=== PATIENT | female | born 1935 | race African-American/Black ===

== ENCOUNTER 2016-11-15 01:52 | Emergency (ER) | payer MEDICARE, BC | END 2016-11-15 03:49 | disposition home or self-care (01) | LOC: BURERS 01:52 | DX: R51 Headache (principal); T39.315A Adverse effect of propionic acid derivatives, initial encounter; E78.5 Hyperlipidemia, unspecified; Z79.899 Other long term (current) drug therapy | CPT/HCPCS: 99283 ==

== ENCOUNTER 2016-11-26 07:00 | Emergency (ER) | payer MEDICARE, BC ==
[2016-11-26 07:47] LABS: Bacteria/HPF Rare-Few HPF (None Seen); Bilirubin Negative (Negative); Blood, Urine Trace (Negative); Clarity Clear (Clear); Glucose, Urine (Dipstick) Negative (Negative); Leukocyte Small (Negative); Nitrite Negative (Negative); Other Microscopic Description C&S SET UP; Protein, Urine (Dipstick) 30 mg/dL (Neg-Trace); RBC/HPF 0-3 HPF (0-3); Specific Gravity, Urine 1.015 (1.005-1.030); Squamous Epithelial 0-3 HPF (0-3); Urobilinogen 0.2 mg/dL (0.2-1.0)
[2016-11-26] MEDS ORDERED: Ondansetron ODT 4 MG TAB ONE (08:08)
[2016-11-26] MEDS ORDERED: Nitrofurantoin Monohyd/M-Cryst 100 MG CAP ONE (08:09)
== END 2016-11-26 08:26 | disposition home or self-care (01) ==
LOC: BURERS 07:00
DX: N30.00 Acute cystitis without hematuria (principal); I10 Essential (primary) hypertension; E78.5 Hyperlipidemia, unspecified; Z79.82 Long term (current) use of aspirin; Z79.891 Long term (current) use of opiate analgesic; Z79.899 Other long term (current) drug therapy
CPT/HCPCS: 81001; 87086; 99284; Q0162

== ENCOUNTER 2016-12-06 13:10 | Emergency (ER) | payer MEDICARE, BC ==
[2016-12-06 14:10] LABS: Anion Gap 15 mmol/L (10-20); BUN (Urea Nitrogen) 17 mg/dL (9.8-20.1); Calc. Creatinine Clearance 0 mL/min (70-130); Carbon Dioxide 22 mmol/L (23-31); Chloride 108 mmol/L (98-107); Estimated GFR-MDRD 60; Glucose 89 mg/dL (83-110); Potassium 4.6 mmol/L (3.5-5.1); Sodium 140 mmol/L (136-145)
[2016-12-06] MEDS ORDERED: Furosemide 40 MG TAB ONE (14:35)
== END 2016-12-06 14:40 | disposition home or self-care (01) ==
LOC: BURERS 13:10
DX: R60.0 Localized edema (principal); G43.909 Migraine, unspecified, not intractable, without status migrainosus; E78.5 Hyperlipidemia, unspecified
CPT/HCPCS: 36415; 80048; 83880; 99284

== ENCOUNTER 2016-12-12 21:27 | Emergency (ER) | payer MEDICARE, BC ==
[2016-12-12 22:11] LABS: #Basophils 0.1 thou/uL (0.0-0.2); #Eosinphils 0.2 thou/uL (0.0-0.7); #Monocytes 0.5 thou/uL (0.11-0.59); %Basophils 1.7 % (0.0-1.0); %Eosinophils 3.2 % (0.0-10.0); %Lymphocytes 43.7 % (21.0-51.0); %Monocytes 7.9 % (0.0-10.0); %Neutrophils 43.5 % (42.0-75.0); Hemoglobin 11.7 g/dL (12.0-16.0); Mean Corpuscular HGB CONC 33.1 g/dL (32.0-36.0); Mean Corpuscular Hemoglobin 28.8 pg (27.0-31.0); Mean Corpuscular Volume 87.1 fl (81.0-99.0); Mean Platelet Volume 8.7 fL (7.4-10.4); Platelet Count 192 thou/uL (130-400); RBC Distribution Width 14.2 % (11.5-14.5); Red Blood Cell (RBC) Count 4.04 mill/uL (4.20-5.40); White Blood Cell (WBC) Count 6.8 thou/uL (4.8-10.8)
[2016-12-12 22:20] LABS: ALT (SGPT) 16 U/L (0-55); AST (SGOT) 19 U/L (5-34); Alkaline Phosphatase 66 U/L (40-150); Anion Gap 18 mmol/L (10-20); BUN (Urea Nitrogen) 31 mg/dL (9.8-20.1); Bilirubin, Total 0.4 mg/dL (0.2-1.2); Calc. Creatinine Clearance 0 mL/min (70-130); Calcium 9.1 mg/dL (7.8-10.44); Carbon Dioxide 22 mmol/L (23-31); Chloride 104 mmol/L (98-107); Estimated GFR-MDRD 45; Globulin 3.4 g/dL (2.4-3.5); Glucose 88 mg/dL (83-110); Potassium 4.1 mmol/L (3.5-5.1); Protein, Total 7.4 g/dL (5.8-8.1); Sodium 140 mmol/L (136-145)
[2016-12-12 22:21] LABS: CKMB 3.4 ng/mL (0-6.6); Troponin I Less than 0.010 ng/mL (< 0.028)
--- NOTE | 2016-12-12 22:24 | RAD ---
PORTABLE CHEST 12/12/16 An AP portable film at 2137 is compared with a 11/22/16 study done at [facility]. Mild cardiomegaly is about the same as before. The lung markings seem slightly more prominent than b efore, though the upper lobe vessels are not terribly distended. It is haziest is the right base. Th is may be in part due to the patient being turned slightly. Overall, I cannot confidently diagnose v ascular congestion at the moment, but I am not prepared to exclude early congestion. Serial followup films will be helpful. IMPRESSION: Slight increase in haziness in the lungs since the prior film. POS: HOME
[2016-12-12] MEDS ORDERED: Furosemide 40 MG TAB ONE (23:48)
== END 2016-12-13 00:27 | disposition home or self-care (01) ==
LOC: BURERS 21:27
DX: I11.0 Hypertensive heart disease with heart failure (principal); I50.9 Heart failure, unspecified; E78.5 Hyperlipidemia, unspecified; Z79.82 Long term (current) use of aspirin; Z79.891 Long term (current) use of opiate analgesic; Z79.899 Other long term (current) drug therapy
CPT/HCPCS: 71010; 80053; 82553; 83880; 84484; 85025; 93005

== ENCOUNTER 2016-12-25 03:57 | Emergency (ER) | payer MEDICARE, BC ==
[2016-12-25 04:24] LABS: Bilirubin Negative (Negative); Blood, Urine Negative (Negative); Clarity Slightly Cloudy (Clear); Glucose, Urine (Dipstick) Negative (Negative); Leukocyte Small (Negative); Nitrite Negative (Negative); Protein, Urine (Dipstick) Negative (Neg-Trace); Specific Gravity, Urine 1.015 (1.005-1.030); Urobilinogen 0.2 mg/dL (0.2-1.0); pH, Urine 5.5 (5.0-9.0)
[2016-12-25 04:29] LABS: RBC/HPF 0-3 HPF (0-3); Squamous Epithelial 0-3 HPF (0-3)
[2016-12-25 04:30] LABS: Bacteria/HPF 1+ HPF (None Seen)
[2016-12-25] MEDS ORDERED: Bisacodyl 10 MG SUPP ONE (04:58)
--- NOTE | 2016-12-25 07:17 | RAD ---
ABDOMEN 2 VIEWS: Date: 12/25/16 Supine and erect views show no free air beneath the diaphragm. The gas pattern is nonspecific with g as in nondistended small and large bowel. A moderate amount of fecal material is seen in the colon. Pelvic calcifications are present bilaterally that are most likely phleboliths, but if there any hem aturia, any one of these could potentially be ureteral in nature. Mild scoliosis convex right is pre sent. Exam was otherwise unremarkable. IMPRESSION: Mild constipation. Otherwise, no acute findings. POS: HOME
== END 2016-12-25 05:12 | disposition home or self-care (01) ==
LOC: BURERS 03:57
DX: N39.0 Urinary tract infection, site not specified (principal); K59.00 Constipation, unspecified; I10 Essential (primary) hypertension; E78.5 Hyperlipidemia, unspecified; G43.909 Migraine, unspecified, not intractable, without status migrainosus; M54.2 Cervicalgia; Z79.82 Long term (current) use of aspirin; Z79.899 Other long term (current) drug therapy
CPT/HCPCS: 74020; 81003; 81015; 87077; 87086; 87186

== ENCOUNTER 2017-01-30 05:52 | Emergency (ER) | payer MEDICARE, BC ==
[2017-01-30 06:34] LABS: #Basophils 0.1 thou/uL (0.0-0.2); #Eosinphils 0.2 thou/uL (0.0-0.7); #Lymphocytes 2.6 thou/uL (1.20-3.40); #Monocytes 0.6 thou/uL (0.11-0.59); #Neutrophils 2.3 thou/uL (1.40-6.50); %Basophils 1.5 % (0.0-1.0); %Lymphocytes 45.9 % (21.0-51.0); %Monocytes 9.9 % (0.0-10.0); %Neutrophils 39.8 % (42.0-75.0); Hemoglobin 11.9 g/dL (12.0-16.0); Mean Corpuscular HGB CONC 32.4 g/dL (32.0-36.0); Mean Corpuscular Hemoglobin 27.4 pg (27.0-31.0); Mean Corpuscular Volume 84.6 fl (81.0-99.0); Mean Platelet Volume 7.5 fL (7.4-10.4); Platelet Count 191 thou/uL (130-400); RBC Distribution Width 14.6 % (11.5-14.5); Red Blood Cell (RBC) Count 4.35 mill/uL (4.20-5.40); White Blood Cell (WBC) Count 5.7 thou/uL (4.8-10.8)
[2017-01-30 06:44] LABS: Bilirubin Negative (Negative); Blood, Urine Negative (Negative); Clarity Clear (Clear); Glucose, Urine (Dipstick) Negative (Negative); Leukocyte Trace (Negative); Nitrite Negative (Negative); Protein, Urine (Dipstick) Trace mg/dL (Neg-Trace); Urobilinogen 0.2 mg/dL (0.2-1.0)
[2017-01-30 06:46] LABS: Bacteria/HPF None Seen HPF (None Seen); RBC/HPF 0-3 HPF (0-3); Squamous Epithelial 0-3 HPF (0-3); WBC/HPF 0-3 HPF (0-3)
[2017-01-30 06:47] LABS: Other Microscopic Description C&S SET UP
[2017-01-30 06:49] LABS: ALT (SGPT) 10 U/L (8-55); AST (SGOT) 15 U/L (5-34); Albumin 3.7 g/dL (3.4-4.8); Alkaline Phosphatase 71 U/L (40-150); Anion Gap 11 mmol/L (10-20); BUN (Urea Nitrogen) 24 mg/dL (9.8-20.1); Bilirubin, Total 0.3 mg/dL (0.2-1.2); CK (CPK) 89 U/L (29-168); Calc. Creatinine Clearance 0 mL/min (70-130); Carbon Dioxide 27 mmol/L (23-31); Chloride 105 mmol/L (98-107); Estimated GFR-MDRD 63; Glucose 97 mg/dL (83-110); Lipase 48 U/L (8-78); Protein, Total 6.7 g/dL (6.0-8.3); Sodium 139 mmol/L (136-145)
[2017-01-30 06:50] LABS: CKMB 1.8 ng/mL (0-6.6); Troponin I Less than 0.010 ng/mL (< 0.028)
== END 2017-01-30 07:19 | disposition home or self-care (01) ==
LOC: BURERS 05:52
DX: I10 Essential (primary) hypertension (principal); G43.909 Migraine, unspecified, not intractable, without status migrainosus; E78.5 Hyperlipidemia, unspecified; Z79.82 Long term (current) use of aspirin; Z79.899 Other long term (current) drug therapy
CPT/HCPCS: 36415; 80053; 81003; 81015; 82553; 83690; 84484; 85025; 87086; 93005; 96374; J2270

== ENCOUNTER 2017-02-12 05:15 | Emergency (ER) | payer MEDICARE, BC | END 2017-02-12 05:52 | disposition home or self-care (01) | LOC: BURERS 05:15 | DX: I10 Essential (primary) hypertension (principal); G43.909 Migraine, unspecified, not intractable, without status migrainosus; E78.5 Hyperlipidemia, unspecified | CPT/HCPCS: 99283 ==

== ENCOUNTER 2017-07-21 08:34 | Emergency (ER) | payer MEDICARE, BC | END 2017-07-21 09:18 | disposition home or self-care (01) | LOC: BURERS 08:34 | DX: I10 Essential (primary) hypertension (principal); G43.909 Migraine, unspecified, not intractable, without status migrainosus; E78.5 Hyperlipidemia, unspecified | CPT/HCPCS: 99283 ==

== ENCOUNTER 2017-08-24 21:13 | Emergency (ER) | payer MEDICARE, BC ==
[2017-08-24 22:13] LABS: PTT 25.1 SEC (22.9-36.1); Prothrombin Time 13.4 SEC (12.0-14.7)
[2017-08-24 22:14] LABS: D-Dimer Test 1.12 *mcg/mL (0.27-0.43)
[2017-08-24 22:22] LABS: ALT (SGPT) 13 U/L (8-55); AST (SGOT) 16 U/L (5-34); Alkaline Phosphatase 85 U/L (40-150); Anion Gap 14 mmol/L (10-20); BUN (Urea Nitrogen) 24 mg/dL (9.8-20.1); Bilirubin, Total 0.2 mg/dL (0.2-1.2); Calc. Creatinine Clearance 0 mL/min (70-130); Calcium 9.2 mg/dL (7.8-10.44); Carbon Dioxide 26 mmol/L (23-31); Chloride 105 mmol/L (98-107); Estimated GFR-MDRD 56; Globulin 3.4 g/dL (2.4-3.5); Glucose 235 mg/dL (83-110); Potassium 3.6 mmol/L (3.5-5.1); Protein, Total 7.4 g/dL (6.0-8.3); Sodium 141 mmol/L (136-145)
[2017-08-24 22:23] LABS: CKMB 3.1 ng/mL (0-6.6); Troponin I 0.011 ng/mL (< 0.028)
[2017-08-24 22:27] LABS: Band 1 % (5-11); Hemoglobin 12.4 g/dL (12.0-16.0); Lymphocytes 20 % (21-51); MDiff Complete? YES; Mean Corpuscular HGB CONC 33.4 g/dL (32.0-36.0); Mean Corpuscular Hemoglobin 28.3 pg (27.0-31.0); Mean Corpuscular Volume 84.9 fl (81.0-99.0); Mean Platelet Volume 7.8 fL (7.4-10.4); Monocytes 1 % (0-10); Neutrophil 78 % (42-75); PLT Morphology Comment Appears Adequate; Platelet Count 217 thou/uL (130-400); RBC Distribution Width 12.9 % (11.5-14.5); RBC Morphology Normal; Red Blood Cell (RBC) Count 4.39 mill/uL (4.20-5.40); White Blood Cell (WBC) Count 6.2 thou/uL (4.8-10.8)
--- NOTE | 2017-08-24 23:28 | RAD ---
PORTABLE CHEST 08/24/17 An AP portable film at 2114 is compared with an 07/08/17 study. The heart is upper limits of normal in size but no different than before. There is no congestion of v essels, pleural effusions, or focal pulmonary infiltrates. The trachea is midline. IMPRESSION: No acute findings. POS: HOME
== END 2017-08-24 23:05 | disposition home or self-care (01) ==
LOC: BURERS 21:13
DX: R00.2 Palpitations (principal); E78.5 Hyperlipidemia, unspecified; G43.909 Migraine, unspecified, not intractable, without status migrainosus; I10 Essential (primary) hypertension; Z79.82 Long term (current) use of aspirin; Z79.899 Other long term (current) drug therapy
CPT/HCPCS: 71010; 80053; 82553; 84484; 85025; 85379; 85610; 85730; 93005; 94760

== ENCOUNTER 2017-09-30 20:25 | Emergency (ER) | payer MEDICARE, BC ==
[2017-09-30] MEDS ORDERED: Ibuprofen 800 MG TAB ONE (21:17)
[2017-09-30 21:24] LABS: #Basophils 0.1 thou/uL (0.0-0.2); #Eosinphils 0.1 thou/uL (0.0-0.7); #Lymphocytes 2.1 thou/uL (1.20-3.40); #Monocytes 0.7 thou/uL (0.11-0.59); %Basophils 0.9 % (0.0-1.0); %Eosinophils 0.7 % (0.0-10.0); %Lymphocytes 21.1 % (21.0-51.0); %Monocytes 7.2 % (0.0-10.0); %Neutrophils 70.1 % (42.0-75.0); Hemoglobin 12.5 g/dL (12.0-16.0); Mean Corpuscular Hemoglobin 28.3 pg (27.0-31.0); Mean Corpuscular Volume 85.7 fl (81.0-99.0); Mean Platelet Volume 7.5 fL (7.4-10.4); PLT Morphology Comment Appears Decreased; Platelet Count 116 thou/uL (130-400); RBC Distribution Width 12.3 % (11.5-14.5); RBC Morphology Normal; Red Blood Cell (RBC) Count 4.42 mill/uL (4.20-5.40)
[2017-09-30 21:28] LABS: Anion Gap 19 mmol/L (10-20); BUN (Urea Nitrogen) 19 mg/dL (9.8-20.1); Calc. Creatinine Clearance 0 mL/min (70-130); Calcium 9.6 mg/dL (7.8-10.44); Carbon Dioxide 19 mmol/L (23-31); Chloride 103 mmol/L (98-107); Estimated GFR-MDRD 76; Glucose 125 mg/dL (83-110); Potassium 4.2 mmol/L (3.5-5.1); Sodium 137 mmol/L (136-145); Uric Acid 3.9 mg/dL (2.6-6.0)
--- NOTE | 2017-09-30 23:07 | RAD ---
LEFT FOOT 09/30/17 No acute fracture was seen. There are erosive changes in the nonarticular part of the first metatarsa l head laterally. Sometimes this can be caused by gout and other times it is just due to cystic plascencia es in the bone. Hallux valgus is present and there is soft tissue swelling medial to the first MTP ana int. The other bones all appeared intact. Some swelling is seen on the dorsum of the foot. A calcanea l spur is present. A few flecks of bone are seen along the anterior part of the dorsal talus that may be avulsions from a prior injury. IMPRESSION: Bony and soft tissue changes as listed above. POS: HOME
== END 2017-09-30 21:57 | disposition home or self-care (01) ==
LOC: BURERS 20:25
DX: M79.672 Pain in left foot (principal); R60.0 Localized edema; Z91.14 Patient's other noncompliance with medication regimen; I10 Essential (primary) hypertension; G43.909 Migraine, unspecified, not intractable, without status migrainosus; E78.5 Hyperlipidemia, unspecified; Z79.82 Long term (current) use of aspirin; Z79.899 Other long term (current) drug therapy
CPT/HCPCS: 80048; 84550; 85025

== ENCOUNTER 2017-10-31 12:18 | Emergency (ER) | payer MEDICARE, BC ==
[2017-10-31] MEDS ORDERED: Acetaminophen 500 MG TAB ONE (13:26)
== END 2017-10-31 13:33 | disposition home or self-care (01) ==
LOC: BURERS 12:18
DX: R51 Headache (principal); F03.90 Unspecified dementia, unspecified severity, without behavioral disturbance, psychotic disturbance, mood disturbance, and anxiety; I10 Essential (primary) hypertension; E78.5 Hyperlipidemia, unspecified; Z79.82 Long term (current) use of aspirin; Z79.899 Other long term (current) drug therapy
CPT/HCPCS: 99283

== ENCOUNTER 2018-01-11 20:49 | Emergency (ER) | payer MEDICARE, BC ==
[2018-01-11] MEDS ORDERED: Ondansetron ODT 4 MG TAB ONE (21:04)
[2018-01-11 21:27] LABS: #Basophils 0.1 thou/uL (0.0-0.2); #Eosinphils 0.2 thou/uL (0.0-0.7); #Monocytes 0.7 thou/uL (0.11-0.59); #Neutrophils 3.4 thou/uL (1.40-6.50); %Basophils 1.2 % (0.0-1.0); %Monocytes 9.8 % (0.0-10.0); %Neutrophils 45.9 % (42.0-75.0); Hemoglobin 12.2 g/dL (12.0-16.0); Mean Corpuscular HGB CONC 33.6 g/dL (32.0-36.0); Mean Corpuscular Hemoglobin 26.7 pg (27.0-31.0); Mean Corpuscular Volume 79.4 fl (81.0-99.0); Mean Platelet Volume 8.1 fL (7.4-10.4); Platelet Count 212 thou/uL (130-400); RBC Distribution Width 14.6 % (11.5-14.5); Red Blood Cell (RBC) Count 4.56 mill/uL (4.20-5.40); White Blood Cell (WBC) Count 7.4 thou/uL (4.8-10.8)
[2018-01-11 21:44] LABS: ALT (SGPT) 13 U/L (8-55); AST (SGOT) 19 U/L (5-34); Albumin 3.9 g/dL (3.4-4.8); Alkaline Phosphatase 84 U/L (40-150); Anion Gap 16 mmol/L (10-20); BUN (Urea Nitrogen) 24 mg/dL (9.8-20.1); Bilirubin, Total 0.3 mg/dL (0.2-1.2); Calc. Creatinine Clearance 0 mL/min (70-130); Carbon Dioxide 24 mmol/L (23-31); Chloride 105 mmol/L (98-107); Estimated GFR-MDRD 58; Globulin 3.1 g/dL (2.4-3.5); Glucose 116 mg/dL (83-110); Potassium 4.5 mmol/L (3.5-5.1); Sodium 140 mmol/L (136-145)
[2018-01-11 21:46] LABS: Bilirubin Negative (Negative); Blood, Urine Negative (Negative); Clarity Slightly Cloudy (Clear); Glucose, Urine (Dipstick) Negative (Negative); Leukocyte Small (Negative); Nitrite Negative (Negative); Protein, Urine (Dipstick) Trace mg/dL (Neg-Trace); Urobilinogen 0.2 mg/dL (0.2-1.0)
[2018-01-11 21:54] LABS: Bacteria/HPF 1+ HPF (None Seen); RBC/HPF 0-3 HPF (0-3); Squamous Epithelial 0-3 HPF (0-3)
[2018-01-11 22:02] LABS: CKMB 2.6 ng/mL (0-6.6); Troponin I Less than 0.010 ng/mL (< 0.028)
[2018-01-11] MEDS ORDERED: AMOXicillin 250 MG CAP ONE (22:17)
== END 2018-01-11 22:35 | disposition home or self-care (01) ==
LOC: BURERS 20:49
DX: N39.0 Urinary tract infection, site not specified (principal); R42 Dizziness and giddiness; I10 Essential (primary) hypertension; G43.909 Migraine, unspecified, not intractable, without status migrainosus; E78.5 Hyperlipidemia, unspecified; Z79.82 Long term (current) use of aspirin; Z79.899 Other long term (current) drug therapy
CPT/HCPCS: 36415; 80053; 81003; 81015; 82553; 84484; 85025; 93005; Q0162

== ENCOUNTER 2018-01-20 21:28 | Emergency (ER) | payer MEDICARE, BC ==
[2018-01-20] MEDS ORDERED: Meclizine HCl 25 MG TAB ONE (21:55)
== END 2018-01-20 22:01 | disposition home or self-care (01) ==
LOC: BURERS 21:28
DX: H83.09 Labyrinthitis, unspecified ear (principal); I10 Essential (primary) hypertension; G43.909 Migraine, unspecified, not intractable, without status migrainosus; E78.5 Hyperlipidemia, unspecified; Z79.899 Other long term (current) drug therapy; Z79.82 Long term (current) use of aspirin
CPT/HCPCS: 99283

== ENCOUNTER 2018-08-18 19:18 | Emergency (ER) | payer MEDICARE, BC ==
[2018-08-18 19:52] LABS: #Basophils 0.1 thou/uL (0.0-0.2); #Eosinphils 0.1 thou/uL (0.0-0.7); #Lymphocytes 3.1 thou/uL (1.20-3.40); #Monocytes 0.6 thou/uL (0.11-0.59); #Neutrophils 2.8 thou/uL (1.40-6.50); %Basophils 1.1 % (0.0-1.0); %Eosinophils 1.6 % (0.0-10.0); %Lymphocytes 45.8 % (21.0-51.0); %Monocytes 9.5 % (0.0-10.0); Hemoglobin 11.9 g/dL (12.0-16.0); Mean Corpuscular HGB CONC 33.9 g/dL (32.0-36.0); Mean Corpuscular Hemoglobin 26.9 pg (27.0-31.0); Mean Corpuscular Volume 79.5 fL (78.0-98.0); Mean Platelet Volume 9.7 fL (7.4-10.4); Platelet Count 239 thou/uL (130-400); RBC Distribution Width 13.2 % (11.5-14.5); Red Blood Cell (RBC) Count 4.42 mill/uL (4.20-5.40); White Blood Cell (WBC) Count 6.7 thou/uL (4.8-10.8)
[2018-08-18 20:01] LABS: Anion Gap 14 mmol/L (10-20); BUN (Urea Nitrogen) 15 mg/dL (9.8-20.1); Calc. Creatinine Clearance 0 mL/min (70-130); Calcium 9.3 mg/dL (7.8-10.44); Carbon Dioxide 28 mmol/L (23-31); Chloride 101 mmol/L (98-107); Estimated GFR-MDRD 54; Glucose 135 mg/dL (83-110); Potassium 3.6 mmol/L (3.5-5.1); Sodium 139 mmol/L (136-145)
[2018-08-18] MEDS ORDERED: Acetaminophen 325 MG TAB ONE (20:07)
== END 2018-08-18 20:37 | disposition home or self-care (01) ==
LOC: BURERS 19:18
DX: R42 Dizziness and giddiness (principal); I10 Essential (primary) hypertension; G43.909 Migraine, unspecified, not intractable, without status migrainosus; E78.5 Hyperlipidemia, unspecified; Z79.899 Other long term (current) drug therapy; Z79.82 Long term (current) use of aspirin
CPT/HCPCS: 80048; 85025; 99284

== ENCOUNTER 2018-10-09 10:59 | Emergency (ER) | payer MEDICARE, BC ==
[2018-10-09] MEDS ORDERED: Dexamethasone 4 mg/ml Vial ONE (11:45)
[2018-10-09] MEDS ORDERED: AMOXicillin 250 MG CAP ONE (11:45)
== END 2018-10-09 11:55 | disposition home or self-care (01) ==
LOC: BURERS 10:59
DX: J06.9 Acute upper respiratory infection, unspecified (principal); I10 Essential (primary) hypertension; G43.909 Migraine, unspecified, not intractable, without status migrainosus; E78.5 Hyperlipidemia, unspecified; Z79.899 Other long term (current) drug therapy; Z79.82 Long term (current) use of aspirin
CPT/HCPCS: 99283; J1100

== ENCOUNTER 2018-10-17 07:14 | Emergency (ER) | payer MEDICARE, BC ==
[2018-10-17] MEDS ORDERED: Azithromycin 250 MG TAB ONE (08:02)
== END 2018-10-17 08:10 | disposition home or self-care (01) ==
LOC: BURERS 07:14
DX: J20.9 Acute bronchitis, unspecified (principal); I10 Essential (primary) hypertension; G43.909 Migraine, unspecified, not intractable, without status migrainosus; E78.5 Hyperlipidemia, unspecified; Z79.891 Long term (current) use of opiate analgesic; Z79.899 Other long term (current) drug therapy; Z79.01 Long term (current) use of anticoagulants
CPT/HCPCS: 99283

== ENCOUNTER 2020-09-30 15:21 | Emergency (ER) | payer MEDICARE, BC ==
[2020-09-30] MEDS ORDERED: Bacitracin 1 PK ONE (17:45)
[2020-09-30] MEDS ORDERED: cloNIDine 0.1 MG TAB ONE (18:27)
[2020-09-30 18:59] LABS: Mean Corpuscular HGB CONC 30.6 g/dL (32.0-36.0); Mean Corpuscular Hemoglobin 24.7 pg (27.0-31.0); Mean Corpuscular Volume 80.9 fL (78.0-98.0); Mean Platelet Volume 9.1 fL (7.4-10.4); Platelet Count 158 thou/uL (130-400); RBC Distribution Width 15.9 % (11.5-14.5); Red Blood Cell (RBC) Count 4.03 mill/uL (4.20-5.40); White Blood Cell (WBC) Count 7.4 thou/uL (4.8-10.8)
[2020-09-30 19:26] LABS: Band 2 % (5-11); Eosinophils 2 % (0-10); Hypochromia SLIGHT = 6-15 cells (100X) (0-5/hpf); Lymphocytes 27 % (21-51); MDiff Complete? YES; Metamyelocyte 1 % (0-0); Microcytosis MODERATE=15-30 cells (100X) (0-5/hpf); Monocytes 8 % (0-10); Neutrophil 60 % (42-75); Platelet Morphology Comment Appears Adequate; Poikilocytosis SLIGHT = 6-15 cells (100X) (0-5/hpf); Small Platelets SLIGHT
== END 2020-09-30 19:24 | disposition home or self-care (01) ==
LOC: BURERS 15:21
DX: L03.116 Cellulitis of left lower limb (principal); I10 Essential (primary) hypertension; Z79.899 Other long term (current) drug therapy; Z79.82 Long term (current) use of aspirin; E78.5 Hyperlipidemia, unspecified
CPT/HCPCS: 85025

== ENCOUNTER 2021-12-27 17:34 | Emergency (ER) | payer BC, MEDICARE ==
[2021-12-27] MEDS ORDERED: Labetalol HCl 100 MG/20 ML VIAL ONE (18:17)
[2021-12-27] MEDS ORDERED: Furosemide 40 MG/4 ML VIAL ONE (18:17)
[2021-12-27 19:18] LABS: #Basophils 0.1 thou/uL (0.0-0.2); #Eosinphils 0.2 thou/uL (0.0-0.7); #Lymphocytes 1.6 thou/uL (1.20-3.40); #Monocytes 0.6 thou/uL (0.11-0.59); #Neutrophils 5.6 thou/uL (1.40-6.50); %Basophils 1.4 % (0.0-1.0); %Eosinophils 2.2 % (0.0-10.0); %Lymphocytes 19.8 % (21.0-51.0); %Monocytes 7.7 % (0.0-10.0); Hemoglobin 11.3 g/dL (12.0-16.0); Mean Corpuscular HGB CONC 31.1 g/dL (32.0-36.0); Mean Corpuscular Hemoglobin 26.1 pg (27.0-31.0); Mean Corpuscular Volume 83.9 fL (78.0-98.0); Mean Platelet Volume 8.3 fL (7.4-10.4); Platelet Count 184 thou/uL (130-400); RBC Distribution Width 16.8 % (11.5-14.5); Red Blood Cell (RBC) Count 4.32 mill/uL (4.20-5.40); White Blood Cell (WBC) Count 8.1 thou/uL (4.8-10.8)
[2021-12-27 19:22] LABS: ALT (SGPT) 20 U/L (8-55); AST (SGOT) 21 U/L (5-34); Alkaline Phosphatase 74 U/L (40-110); Anion Gap 18 mmol/L (10-20); BUN (Urea Nitrogen) 24 mg/dL (9.8-20.1); Bilirubin, Total 0.8 mg/dL (0.2-1.2); Calc. Creatinine Clearance 0 mL/min (70-130); Calcium 9.2 mg/dL (7.8-10.44); Carbon Dioxide 24 mmol/L (23-31); Chloride 105 mmol/L (98-107); Globulin 3.7 g/dL (2.4-3.5); Glucose 132 mg/dL (83-110); Potassium 3.5 mmol/L (3.5-5.1); Protein, Total 7.7 g/dL (5.8-8.1); Sodium 143 mmol/L (136-145)
== END 2021-12-27 22:10 | disposition short-term general hospital (02) ==
LOC: BURERS 17:34
DX: I11.0 Hypertensive heart disease with heart failure (principal); I50.9 Heart failure, unspecified; I48.91 Unspecified atrial fibrillation; E78.5 Hyperlipidemia, unspecified; Z79.82 Long term (current) use of aspirin; Z79.899 Other long term (current) drug therapy
CPT/HCPCS: 36415; 71045; 80053; 83880; 84484; 85025; 93005; 96374; 96375; J1940

== ENCOUNTER 2023-11-01 12:15 | Emergency (ER) | payer MEDICARE, OTHER ==
[2023-11-01 12:53] LABS: #Eosinphils 0.1 thou/uL (0.0-0.7); #Lymphocytes 1.9 thou/uL (1.20-3.40); #Monocytes 0.6 thou/uL (0.11-0.59); #Neutrophils 4.3 thou/uL (1.40-6.50); %Basophils 0.7 % (0.0-1.0); %Eosinophils 1.4 % (0.0-10.0); %Lymphocytes 27.5 % (21.0-51.0); %Monocytes 9.1 % (0.0-10.0); %Neutrophils 61.4 % (42.0-75.0); Hematocrit 29.3 % (36.0-47.0); Mean Corpuscular HGB CONC 30.9 g/dL (32.0-36.0); Mean Corpuscular Hemoglobin 23.2 pg (27.0-31.0); Mean Corpuscular Volume 75.3 fl (78.0-98.0); Mean Platelet Volume 8.6 fL (7.4-10.4); Platelet Count 205 10x3/uL (130-400); Red Blood Cell (RBC) Count 3.89 mill/uL (4.20-5.40)
[2023-11-01 12:55] LABS: Critical Call w/ Read Back 321621
[2023-11-01 12:56] LABS: MDiff Complete? YES
[2023-11-01 13:10] LABS: ALT (SGPT) 9 U/L (8-55); AST (SGOT) 11 U/L (5-34); Albumin 3.4 g/dL (3.4-4.8); Alkaline Phosphatase 65 U/L (40-110); Anion Gap 15 mmol/L (10-20); BUN (Urea Nitrogen) 29 mg/dL (9.8-20.1); Bilirubin, Total 0.5 mg/dL (0.2-1.2); Calc. Creatinine Clearance 0 mL/min (70-130); Calcium 8.8 mg/dL (7.8-10.44); Carbon Dioxide 22 mmol/L (23-31); Chloride 109 mmol/L (98-107); Estimated GFR 42; Globulin 3.2 g/dL (2.4-3.5); Glucose 119 mg/dL (83-110); Potassium 3.7 mmol/L (3.5-5.1); Protein, Total 6.6 g/dL (5.8-8.1); Sodium 142 mmol/L (136-145)
[2023-11-01] MEDS ORDERED: Furosemide 40 MG (4 mL) VIAL ONE (13:53)
[2023-11-01 14:12] LABS: Bilirubin Negative (Negative); Blood, Urine Trace (Negative); Clarity Clear (Clear); Glucose, Urine (Dipstick) Negative (Negative); Ketone, Urine Negative (Negative); Leukocyte Trace (Negative); Nitrite Negative (Negative); Protein, Urine (Dipstick) Negative (Neg-Trace); Urobilinogen 0.2 mg/dL (Less than 2)
[2023-11-01 14:17] LABS: Bacteria/HPF Rare-Few HPF (None Seen); CAUTI Indications for Culture Alt mental st,lethar; RBC/HPF 0-3 HPF (0-3); Squamous Epithelial 0-3 HPF (0-3); WBC/HPF 0-3 HPF (0-3)
[2023-11-01 14:18] LABS: Urine Culture Reflex No No
== END 2023-11-01 15:20 | disposition home or self-care (01) ==
LOC: BURERS 12:15
DX: I11.0 Hypertensive heart disease with heart failure (principal); I50.9 Heart failure, unspecified; E78.5 Hyperlipidemia, unspecified; Z79.82 Long term (current) use of aspirin; Z79.899 Other long term (current) drug therapy
CPT/HCPCS: 36415; 71045; 80053; 81001; 83880; 84484; 85025; 93005; 96374; J1940

== ENCOUNTER 2024-05-08 09:47 | Emergency (ER) | payer OTHER ==
[2024-05-08] MEDS ORDERED: Acetaminophen 500 MG TAB ONE (10:32)
== END 2024-05-08 10:52 | disposition home or self-care (01) ==
LOC: BURERS 09:47
DX: M25.552 Pain in left hip (principal); F03.90 Unspecified dementia, unspecified severity, without behavioral disturbance, psychotic disturbance, mood disturbance, and anxiety; Z55.6 Problems related to health literacy
CPT/HCPCS: 72170

== ENCOUNTER 2025-03-20 18:55 | Inpatient (IN) | payer OTHER ==
[2025-03-20] MEDS ORDERED: Acetaminophen 325 MG TAB PO PRN (20:32)
[2025-03-20] MEDS: Gabapentin 300 MG CAP PO SCH (21:24)
[2025-03-20] MEDS: Rosuvastatin 10 MG TAB PO SCH (21:25)
[2025-03-20] MEDS: TRIMETHOPRIM EA EYE SCH (21:25)
[2025-03-20] MEDS: POLYMYXIN B SULF EA EYE SCH (21:25)
[2025-03-20] MEDS: Nystatin Powder 15 GM BOT TOP SCH (21:25)
[2025-03-21 05:25] LABS: #Basophils 0.1 thou/uL (0.0-0.2); #Eosinophils 0.2 thou/uL (0.0-0.7); #Lymphocytes 2.7 thou/uL (1.20-3.40); #Monocytes 0.7 thou/uL (0.11-0.59); #Neutrophils 6.8 thou/uL (1.40-6.50); %Basophils 0.6 % (0.0-1.0); %Eosinophils 2.3 % (0.0-10.0); %Lymphocytes 25.7 % (21.0-51.0); %Monocytes 6.7 % (0.0-10.0); %Neutrophils 64.7 % (42.0-75.0); Hematocrit 35.3 % (36.0-47.0); Hemoglobin 11.1 g/dL (12.0-16.0); MDiff Complete? YES; Mean Corpuscular Hemoglobin 24.4 pg (27.0-31.0); Mean Corpuscular Volume 77.5 fl (78.0-98.0); Microcytosis SLIGHT = 6-15 cells (100X) (0-5/hpf); Ovalocytes SLIGHT = 2-5 cells (100X) (0-1/hpf); Platelet Adequacy Comment Appears Adequate; Platelet Count 213 10x3/uL (130-400); Red Blood Cell (RBC) Count 4.55 mill/uL (4.20-5.40); Schistocytes SLIGHT = 2-5 cells (100X) (0-1/hpf); White Blood Cell (WBC) Count 10.5 10x3/uL (4.8-10.8)
[2025-03-21 05:35] LABS: ALT (SGPT) 10 U/L (Less than 34); AST (SGOT) 15 U/L (11-34); Albumin 2.6 g/dL (3.1-4.5); Alkaline Phosphatase 69 U/L (40-110); Anion Gap 17 mmol/L (10-20); BUN (Urea Nitrogen) 19 mg/dL (9.8-20.1); Bilirubin, Total 0.2 mg/dL (0.3-1.2); Calc. Creatinine Clearance 45 mL/min (70-130); Calcium 8.8 mg/dL (7.8-10.44); Carbon Dioxide 19 mmol/L (23-31); Chloride 113 mmol/L (98-107); Globulin 4.2 g/dL (2.4-3.5); Glucose 110 mg/dL (83-110); Potassium 4.7 mmol/L (3.5-5.1); Sodium 144 mmol/L (136-145)
[2025-03-21] MEDS: Isosorbide Mononitrate 30 MG ER.TAB.S PO SCH (08:31)
[2025-03-21] MEDS: Valsartan 80 MG TAB PO SCH (08:32)
[2025-03-21] MEDS: Carvedilol 25 MG TAB PO SCH (08:32)
[2025-03-21] MEDS: Aspirin 81 mg Enteric Coated Tablet PO SCH (08:34)
[2025-03-21] MEDS: Citalopram 20 MG TAB PO SCH (08:36)
[2025-03-23] MEDS: Enoxaparin 40 MG (0.4 mL) SYRINGE SC SCH (21:41)
[2025-03-27] MEDS: Polymyxin B Sulf/Trimethoprim 10 ML OPHTH DROPS EA EYE SCH (12:08)
[2025-03-30 05:31] LABS: Hematocrit 29.1 % (36.0-47.0); Hemoglobin 9.2 g/dL (12.0-16.0); Platelet Count 264 10x3/uL (130-400)
[2025-03-30 05:44] LABS: Calc. Creatinine Clearance 52.0 mL/min (70-130)
[2025-04-08 05:13] LABS: #Basophils 0.1 thou/uL (0.0-0.2); #Eosinophils 0.2 thou/uL (0.0-0.7); #Lymphocytes 1.9 thou/uL (1.20-3.40); #Monocytes 0.6 thou/uL (0.11-0.59); #Neutrophils 3.8 thou/uL (1.40-6.50); %Basophils 0.9 % (0.0-1.0); %Eosinophils 3.6 % (0.0-10.0); %Lymphocytes 28.7 % (21.0-51.0); %Monocytes 8.7 % (0.0-10.0); %Neutrophils 58.1 % (42.0-75.0); Hematocrit 27.4 % (36.0-47.0); Hemoglobin 9.0 g/dL (12.0-16.0); Mean Corpuscular Hemoglobin 24.9 pg (27.0-31.0); Mean Corpuscular Volume 75.9 fl (78.0-98.0); Platelet Count 228 10x3/uL (130-400); Red Blood Cell (RBC) Count 3.61 mill/uL (4.20-5.40); White Blood Cell (WBC) Count 6.6 10x3/uL (4.8-10.8)
[2025-04-08 05:21] LABS: Calc. Creatinine Clearance 56.0 mL/min (70-130)
[2025-04-08 05:42] VITALS: BMI 29.3
[2025-04-08 05:54] LABS: Anisocytosis SLIGHT = 6-15 cells (100X) (0-5/hpf); MDiff Complete? YES; Microcytosis SLIGHT = 6-15 cells (100X) (0-5/hpf); Platelet Adequacy Comment Appears Adequate
[2025-04-09] MEDS: Bacitracin-Polymyxin B Opth Oint 3.5 GM TUBE EA EYE SCH (17:42)
[2025-04-11 05:53] LABS: Anion Gap 14 mmol/L (10-20); BUN (Urea Nitrogen) 29 mg/dL (9.8-20.1); Calc. Creatinine Clearance 48 mL/min (70-130); Calcium 8.9 mg/dL (7.8-10.44); Carbon Dioxide 24 mmol/L (23-31); Chloride 107 mmol/L (98-107); Glucose 90 mg/dL (83-110); Potassium 4.4 mmol/L (3.5-5.1); Sodium 141 mmol/L (136-145)
[2025-04-13] MEDS: Isosorbide Mononitrate 20 MG TAB PO SCH (20:49)
[2025-04-14] MEDS: Aspirin Chewable 81 MG TAB PO SCH (08:28)
[2025-04-15 05:15] LABS: Hematocrit 28.0 % (36.0-47.0); Hemoglobin 9.0 g/dL (12.0-16.0); Platelet Count 220 10x3/uL (130-400)
[2025-04-18 08:41] VITALS: BMI 31.6
[2025-04-18] MEDS: Carvedilol 25 MG TAB PO SCH (20:18)
[2025-04-19 05:44] VITALS: TEMP 98.1
[2025-04-19 08:12] VITALS: BP 133/83
[2025-04-19] MEDS: Carvedilol 25 MG TAB PO SCH (08:14)
== END 2025-04-19 15:10 | disposition home or self-care (01) | DRG 945 ==
LOC: BURMED 19:20
PROVIDERS: ADMIT Family Medicine; ATTEND Family Medicine
PROC: F07Z9ZZ Gait Training/Functional Ambulation Treatment (ICD-10-PCS; principal; 2025-03-20)
DX: R53.81 Other malaise (principal); G93.41 Metabolic encephalopathy; I50.32 Chronic diastolic (congestive) heart failure; E87.0 Hyperosmolality and hypernatremia; F03.90 Unspecified dementia, unspecified severity, without behavioral disturbance, psychotic disturbance, mood disturbance, and anxiety; I11.0 Hypertensive heart disease with heart failure; E78.5 Hyperlipidemia, unspecified; R26.89 Other abnormalities of gait and mobility; Z79.899 Other long term (current) drug therapy; Z79.82 Long term (current) use of aspirin; Z79.891 Long term (current) use of opiate analgesic; Z90.710 Acquired absence of both cervix and uterus; Z98.890 Other specified postprocedural states
CPT/HCPCS: 36415; 36416; 80048; 80053; 82565; 85014; 85018; 85025; 85049; 97602; J1650

== ENCOUNTER 2025-04-19 16:57 | Inpatient (IN) | payer OTHER ==
[2025-04-19 17:31] LABS: #Basophils 0.1 thou/uL (0.0-0.2); #Eosinophils 0.1 thou/uL (0.0-0.7); #Lymphocytes 1.8 thou/uL (1.20-3.40); #Monocytes 0.6 thou/uL (0.11-0.59); #Neutrophils 5.3 thou/uL (1.40-6.50); %Basophils 1.2 % (0.0-1.0); %Eosinophils 1.2 % (0.0-10.0); %Lymphocytes 22.9 % (21.0-51.0); %Monocytes 7.3 % (0.0-10.0); %Neutrophils 67.6 % (42.0-75.0); Hematocrit 26.5 % (36.0-47.0); Hemoglobin 8.5 g/dL (12.0-16.0); Mean Corpuscular Hemoglobin 24.6 pg (27.0-31.0); Mean Corpuscular Volume 76.5 fl (78.0-98.0); Platelet Count 239 10x3/uL (130-400); Red Blood Cell (RBC) Count 3.46 mill/uL (4.20-5.40); White Blood Cell (WBC) Count 7.8 10x3/uL (4.8-10.8)
[2025-04-19 17:42] LABS: ALT (SGPT) Less than 7 U/L (Less than 34); AST (SGOT) 13 U/L (11-34); Albumin 3.2 g/dL (3.1-4.5); Alkaline Phosphatase 55 U/L (40-110); Anion Gap 16 mmol/L (10-20); BUN (Urea Nitrogen) 39 mg/dL (9.8-20.1); Bicarbonate (HCO3v) 25.7 mmol/L (22.0-28.0); Bilirubin, Total 0.6 mg/dL (0.3-1.2); CO2 Tension (PvCO2) 38.1 mmHg (42.0-51.0); Calc. Creatinine Clearance 0 mL/min (70-130); Calcium 9.1 mg/dL (7.8-10.44); Calcium, Ionized 1.24 mmol/L (1.15-1.33); Carbon Dioxide 23 mmol/L (23-31); Chloride 109 mmol/L (98-107); Chloride 110 mmol/L (98-107); Globulin 4.4 g/dL (2.4-3.5); Glucose 108 mg/dL (83-110); Hemoglobin - Calc 9.4 g/dL (12.0-16.0); Potassium 4.5 mmol/L (3.5-5.1); Potassium 4.6 mmol/L (3.5-5.1); Sodium 143 mmol/L (136-145); Sodium 145 mmol/L (138-145); T. Carbon Dioxide 26.8 mmol/L (22.0-28.0); vO2 Saturation-calc 86.8 % (60.0-85.0)
[2025-04-19 17:45] LABS: Troponin I Less than 0.010 ng/mL (< 0.028)
[2025-04-19 17:54] LABS: Glucose, Urine (Dipstick) Negative (Negative); Leukocyte Negative (Negative); Protein, Urine (Dipstick) 30 mg/dL (Neg-Trace); Specific Gravity, Urine 1.015 (1.005-1.030)
[2025-04-19 17:56] LABS: MDiff Complete? YES; Microcytosis SLIGHT = 6-15 cells (100X) (0-5/hpf); Platelet Adequacy Comment Appears Adequate
[2025-04-19 18:12] LABS: Bacteria/HPF Rare-Few HPF (None Seen); CAUTI Indications for Culture Dysuria,urgency,freq; RBC/HPF 0-3 HPF (0-3); WBC/HPF None Seen HPF (0-3)
[2025-04-19 18:13] LABS: Urine Culture Reflex No No
[2025-04-19 18:41] VITALS: BMI 29.8
[2025-04-19] MEDS ORDERED: Acetaminophen 325 MG TAB PO PRN (19:15)
[2025-04-19] MEDS ORDERED: Ibuprofen 200 MG TAB PO PRN (19:27)
[2025-04-19] MEDS: Heparin 5,000 UNITS/ML VIAL SC SCH (20:37)
[2025-04-19] MEDS: Gabapentin 300 MG CAP PO SCH (20:38)
[2025-04-19] MEDS: Rosuvastatin 10 MG TAB PO SCH (20:38)
[2025-04-19] MEDS: Nystatin Powder 15 GM BOT TOP SCH (21:00)
[2025-04-20] MEDS: Ferrous Gluconate 324 MG TAB PO SCH (08:56)
[2025-04-20] MEDS: Citalopram 20 MG TAB PO SCH (08:57)
[2025-04-20] MEDS: Carvedilol 25 MG TAB PO SCH (08:57)
[2025-04-20] MEDS: Isosorbide Mononitrate 30 MG ER.TAB.S PO SCH (08:57)
[2025-04-20] MEDS: Aspirin 81 mg Enteric Coated Tablet PO SCH (08:58)
[2025-04-20] MEDS: Valsartan 80 MG TAB PO SCH (08:58)
[2025-04-20 11:28] VITALS: BP 107/66; TEMP 97.9
== END 2025-04-20 15:15 | disposition home or self-care (01) | DRG 948 ==
LOC: BURERS 16:57 → BURMED 17:55
PROVIDERS: ADMIT Family Medicine; ATTEND Family Medicine
DX: R53.81 Other malaise (principal); I50.32 Chronic diastolic (congestive) heart failure; I11.0 Hypertensive heart disease with heart failure; R09.02 Hypoxemia; G43.909 Migraine, unspecified, not intractable, without status migrainosus; F03.90 Unspecified dementia, unspecified severity, without behavioral disturbance, psychotic disturbance, mood disturbance, and anxiety; E78.5 Hyperlipidemia, unspecified; M54.2 Cervicalgia; Z98.890 Other specified postprocedural states; Z90.710 Acquired absence of both cervix and uterus; Z91.040 Latex allergy status; Z79.899 Other long term (current) drug therapy
CPT/HCPCS: 36415; 51701; 71045; 80053; 81001; 82330; 82435; 82803; 83605; 83880; 84132; 84295; 84484; 85014; 85025; 87040; 93005; J1644